=== PATIENT | male | born 1985 ===

== ENCOUNTER 2022-02-23 19:19 | Emergency (ER) | payer OTHER ==
[~2022-02-23] VITALS: Ht 172.7 cm; Wt 76.2 kg
[2022-02-23] MEDS ORDERED: AMOX-CLAV 875-1 EACH PO (20:29)
== END 2022-02-23 20:58 | disposition home or self-care (01) ==
LOC: ER 19:19
DX: S61.250A Open bite of right index finger without damage to nail, initial encounter (principal); S61.252A Open bite of right middle finger without damage to nail, initial encounter; W54.0XXA Bitten by dog, initial encounter; Y93.9 Activity, unspecified; Y92.9 Unspecified place or not applicable; Y99.9 Unspecified external cause status